=== PATIENT | male | born 1935 | race Caucasian/White ===

== ENCOUNTER 2019-01-01 15:55 | Emergency (ER) | payer MEDICARE, OTHER ==
[~2019-01-01] VITALS: Ht 172.7 cm; Wt 80.0 kg
[~2019-01-01 15:55] MED LIST: NOR5T PO; NORCO10T PO; OMEP-84 PO; PERM60CR19 TP
[2019-01-01 15:59] VITALS: BP 120/81
== END 2019-01-01 18:00 | disposition home or self-care (01) ==
LOC: ER 15:56
DX: S90.122A Contusion of left lesser toe(s) without damage to nail, initial encounter (principal); E78.00 Pure hypercholesterolemia, unspecified; I10 Essential (primary) hypertension; Z86.73 Personal history of transient ischemic attack (TIA), and cerebral infarction without residual deficits; Z90.89 Acquired absence of other organs; Z98.890 Other specified postprocedural states; Z79.899 Other long term (current) drug therapy; W22.8XXA Striking against or struck by other objects, initial encounter; Y93.89 Activity, other specified; Y92.89 Other specified places as the place of occurrence of the external cause; Y99.9 Unspecified external cause status
CPT/HCPCS: 73630; 99283

== ENCOUNTER 2019-01-16 18:42 | Emergency (ER) | payer MEDICARE, OTHER ==
[~2019-01-16] VITALS: Ht 182.9 cm; Wt 80.3 kg
[2019-01-16 19:08] VITALS: BP 113/60
[2019-01-16] MEDS ORDERED: ketorolac trometh. 30mg/ml inj. IM ONE (20:45)
[2019-01-16] MEDS ORDERED: ketorolac tromethamine 15mg/ml inj. IM ONE (21:00)
[2019-01-16] MEDS ORDERED: HYDR-4383 PO (21:04)
[2019-01-16] MEDS ORDERED: IBUP-1984 PO (21:04)
== END 2019-01-16 21:32 | disposition home or self-care (01) ==
LOC: ER 18:43
DX: T84.090A Other mechanical complication of internal right hip prosthesis, initial encounter (principal); G89.29 Other chronic pain; M25.551 Pain in right hip; E78.00 Pure hypercholesterolemia, unspecified; I10 Essential (primary) hypertension; Z98.890 Other specified postprocedural states; Z79.899 Other long term (current) drug therapy; Z86.73 Personal history of transient ischemic attack (TIA), and cerebral infarction without residual deficits; Y83.1 Surgical operation with implant of artificial internal device as the cause of abnormal reaction of the patient, or of later complication, without mention of misadventure at the time of the procedure; Y92.89 Other specified places as the place of occurrence of the external cause
CPT/HCPCS: 73502; 96372; 99283; J1885